=== PATIENT | male | born 1940 | race Caucasian/White ===

== ENCOUNTER 2020-11-12 16:26 | Inpatient (IN) ==
[2020-11-13] MEDS ORDERED: Insulin DETEMIR 100 UNIT/ML per UNIT SUBQ SCH (07:30)
[2020-11-13] MEDS: lisinopriL 20 MG TABLET PO SCH ×2 (08:51→20:26)
[2020-11-13] MEDS: Gabapentin 300 MG CAPSULE PO SCH ×3 (08:52→20:26)
[2020-11-13] MEDS: Aspirin Enteric Coated 81 MG Tablet PO SCH (08:52)
[2020-11-13] MEDS: Finasteride 5 MG TABLET PO SCH (08:52)
[2020-11-13] MEDS: Cefdinir 300 MG CAPSULE PO SCH ×2 (08:52→20:26)
[2020-11-13] MEDS: Carbidopa/Levodopa 25/100 TABLET PO SCH ×3 (08:52→20:26)
[2020-11-13] MEDS: amLODIPine 5 MG TABLET PO SCH (08:52)
[2020-11-13] MEDS: Insulin DETEMIR 100 UNIT/ML X5UNITS SUBQ SCH ×2 (08:55→20:26)
[2020-11-13] MEDS: Insulin LISPRO 300 UNITS/3 ML VIAL SUBQ SCH ×3 (08:55→17:46)
[2020-11-13] MEDS: *HR* Metformin 850 MG TABLET PO SCH ×3 (11:16→20:26)
[2020-11-13 11:52] LABS: BUN/Creatinine Ratio 21 (6-26); Blood Urea Nitrogen 16 mg/dL (8-23); Calcium 8.9 mg/dL (8.6-10.3); Carbon Dioxide 28 mEq/L (23-29); Chloride 103 mEq/L (98-107); Glucose 132 mg/dL (70-105); Osmolality,Calculated 299 (280-300); Potassium 2.8 mEq/L (3.5-5.1); Sodium 143 mEq/L (136-145); eGFR For African Americans > 60 (> 60); eGFR For Non-African Americans > 60 (> 60)
[2020-11-13] MEDS ORDERED: Insulin DETEMIR 100 UNIT/ML per UNIT SUBQ ONE (19:50)
[2020-11-14 07:25] LABS: Hematocrit 38.5 % (37.5-50.1); Hemoglobin 12.3 g/dL (12.9-16.9); Mean Corpuscular HGB Conc 31.9 g/dL (31.6-35.5); Mean Corpuscular Hemoglobin 28.9 pg (28.0-33.3); Mean Corpuscular Volume 90.4 fL (83.0-100.0); Mean Platelet Volume 10.8 fL (9.4-12.4); Platelet Count 213 K/mcL (140-400); Red Blood Count 4.26 M/mcL (4.19-5.50); Red Cell Distribution Width 14.7 % (11.5-14.5); White Blood Count 6.4 K/mcL (4.3-11.1)
[2020-11-14 07:49] LABS: Calcium 8.4 mg/dL (8.6-10.3); Potassium 3.2 mEq/L (3.5-5.1)
[2020-11-14 07:58] LABS: Eosinophils # 0.4 K/mcL (0.0-0.6); Lymphocytes # 0.6 K/mcL (0.6-4.6); Monocytes # 0.4 K/mcL (0.0-1.3)
[2020-11-14] MEDS: amLODIPine 5 MG TABLET PO SCH (10:32)
[2020-11-14] MEDS: Gabapentin 300 MG CAPSULE PO SCH ×3 (10:33→19:59)
[2020-11-14] MEDS: *HR* Metformin 850 MG TABLET PO SCH ×3 (10:35→19:59)
[2020-11-14] MEDS: Aspirin Enteric Coated 81 MG Tablet PO SCH (10:35)
[2020-11-14] MEDS: Cefdinir 300 MG CAPSULE PO SCH ×2 (10:35→19:58)
[2020-11-14] MEDS: lisinopriL 20 MG TABLET PO SCH ×2 (10:35→19:59)
[2020-11-14] MEDS: Finasteride 5 MG TABLET PO SCH (10:35)
[2020-11-14] MEDS: Carbidopa/Levodopa 25/100 TABLET PO SCH ×3 (10:35→19:58)
[2020-11-14] MEDS: Insulin LISPRO 300 UNITS/3 ML VIAL SUBQ SCH ×3 (10:38→17:51)
[2020-11-14] MEDS: Insulin DETEMIR 100 UNIT/ML X5UNITS SUBQ SCH ×2 (10:38→20:09)
[2020-11-14] MEDS ORDERED: Insulin DETEMIR 100 UNIT/ML per UNIT SUBQ ONE (19:29)
[2020-11-15] MEDS: *HR* Metformin 850 MG TABLET PO SCH ×3 (09:15→20:36)
[2020-11-15] MEDS: lisinopriL 20 MG TABLET PO SCH ×2 (09:15→20:36)
[2020-11-15] MEDS: Aspirin Enteric Coated 81 MG Tablet PO SCH (09:15)
[2020-11-15] MEDS: Cefdinir 300 MG CAPSULE PO SCH ×2 (09:15→20:36)
[2020-11-15] MEDS: Gabapentin 300 MG CAPSULE PO SCH ×3 (09:16→20:36)
[2020-11-15] MEDS: amLODIPine 5 MG TABLET PO SCH (09:16)
[2020-11-15] MEDS: Carbidopa/Levodopa 25/100 TABLET PO SCH ×3 (09:16→20:36)
[2020-11-15] MEDS: Finasteride 5 MG TABLET PO SCH (09:16)
[2020-11-15] MEDS: Insulin LISPRO 300 UNITS/3 ML VIAL SUBQ SCH ×3 (09:20→17:32)
[2020-11-15] MEDS: Insulin DETEMIR 100 UNIT/ML X5UNITS SUBQ SCH ×2 (09:20→20:37)
[2020-11-16] MEDS: Aspirin Enteric Coated 81 MG Tablet PO SCH (08:42)
[2020-11-16] MEDS: Carbidopa/Levodopa 25/100 TABLET PO SCH ×3 (08:42→21:30)
[2020-11-16] MEDS: *HR* Metformin 850 MG TABLET PO SCH ×3 (08:42→21:31)
[2020-11-16] MEDS: Insulin LISPRO 300 UNITS/3 ML VIAL SUBQ SCH ×3 (08:42→16:49)
[2020-11-16] MEDS: Gabapentin 300 MG CAPSULE PO SCH ×3 (08:42→21:30)
[2020-11-16] MEDS: amLODIPine 5 MG TABLET PO SCH (08:43)
[2020-11-16] MEDS: Cefdinir 300 MG CAPSULE PO SCH (08:43)
[2020-11-16] MEDS: lisinopriL 20 MG TABLET PO SCH ×2 (08:43→21:30)
[2020-11-16] MEDS: Finasteride 5 MG TABLET PO SCH (08:43)
[2020-11-16] MEDS: Insulin DETEMIR 100 UNIT/ML X5UNITS SUBQ SCH ×2 (09:26→21:31)
[2020-11-17] MEDS: Insulin LISPRO 300 UNITS/3 ML VIAL SUBQ SCH ×3 (10:10→17:19)
[2020-11-17] MEDS: Insulin DETEMIR 100 UNIT/ML X5UNITS SUBQ SCH ×2 (10:14→20:14)
[2020-11-17] MEDS: *HR* Metformin 850 MG TABLET PO SCH ×3 (10:14→20:16)
[2020-11-17] MEDS: Gabapentin 300 MG CAPSULE PO SCH ×3 (10:14→20:15)
[2020-11-17] MEDS: lisinopriL 20 MG TABLET PO SCH ×2 (10:14→20:16)
[2020-11-17] MEDS: Carbidopa/Levodopa 25/100 TABLET PO SCH ×3 (10:14→20:16)
[2020-11-17] MEDS: Finasteride 5 MG TABLET PO SCH (10:15)
[2020-11-17] MEDS: Aspirin Enteric Coated 81 MG Tablet PO SCH (10:15)
[2020-11-17] MEDS: amLODIPine 5 MG TABLET PO SCH (10:15)
[2020-11-17] MEDS: *HR* HYDROcodone/Acet 10/325 mg TABLET PO PRN (17:11)
[2020-11-18] MEDS: *HR* HYDROcodone/Acet 10/325 mg TABLET PO PRN ×3 (01:16→19:48)
[2020-11-18 07:13] LABS: Hematocrit 34.9 % (37.5-50.1); Mean Corpuscular HGB Conc 31.5 g/dL (31.6-35.5); Mean Corpuscular Hemoglobin 28.6 pg (28.0-33.3); Mean Corpuscular Volume 90.9 fL (83.0-100.0); Mean Platelet Volume 10.5 fL (9.4-12.4); Platelet Count 209 K/mcL (140-400); Red Blood Count 3.84 M/mcL (4.19-5.50); Red Cell Distribution Width 14.9 % (11.5-14.5); White Blood Count 6.2 K/mcL (4.3-11.1)
[2020-11-18 07:21] LABS: BUN/Creatinine Ratio 24 (6-26); Blood Urea Nitrogen 23 mg/dL (8-23); Calcium 8.6 mg/dL (8.6-10.3); Carbon Dioxide 28 mEq/L (23-29); Chloride 105 mEq/L (98-107); Glucose 114 mg/dL (70-105); Osmolality,Calculated 297 (280-300); Potassium 4.5 mEq/L (3.5-5.1); Sodium 141 mEq/L (136-145); eGFR For African Americans > 60 (> 60); eGFR For Non-African Americans > 60 (> 60)
[2020-11-18] MEDS: Finasteride 5 MG TABLET PO SCH (08:02)
[2020-11-18] MEDS: Insulin LISPRO 300 UNITS/3 ML VIAL SUBQ SCH ×3 (08:02→16:20)
[2020-11-18] MEDS: amLODIPine 5 MG TABLET PO SCH (08:02)
[2020-11-18] MEDS: Carbidopa/Levodopa 25/100 TABLET PO SCH ×3 (08:02→19:47)
[2020-11-18] MEDS: Gabapentin 300 MG CAPSULE PO SCH ×3 (08:02→19:47)
[2020-11-18] MEDS: *HR* Metformin 850 MG TABLET PO SCH ×3 (08:02→19:47)
[2020-11-18] MEDS: lisinopriL 20 MG TABLET PO SCH ×2 (08:02→19:47)
[2020-11-18] MEDS: Aspirin Enteric Coated 81 MG Tablet PO SCH (08:02)
[2020-11-18] MEDS: Insulin DETEMIR 100 UNIT/ML X5UNITS SUBQ SCH ×2 (08:46→20:41)
[2020-11-19] MEDS: *HR* HYDROcodone/Acet 10/325 mg TABLET PO PRN ×2 (03:52→22:00)
[2020-11-19] MEDS: amLODIPine 5 MG TABLET PO SCH (08:14)
[2020-11-19] MEDS: lisinopriL 20 MG TABLET PO SCH ×2 (08:14→22:01)
[2020-11-19] MEDS: Aspirin Enteric Coated 81 MG Tablet PO SCH (08:14)
[2020-11-19] MEDS: Gabapentin 300 MG CAPSULE PO SCH ×3 (08:14→22:01)
[2020-11-19] MEDS: Carbidopa/Levodopa 25/100 TABLET PO SCH ×3 (08:14→22:01)
[2020-11-19] MEDS: Finasteride 5 MG TABLET PO SCH (08:14)
[2020-11-19] MEDS: *HR* Metformin 850 MG TABLET PO SCH ×3 (08:14→22:00)
[2020-11-19] MEDS: Insulin LISPRO 300 UNITS/3 ML VIAL SUBQ SCH ×3 (08:15→16:26)
[2020-11-19] MEDS: Insulin DETEMIR 100 UNIT/ML X5UNITS SUBQ SCH ×2 (09:00→22:01)
[2020-11-20] MEDS: Insulin LISPRO 300 UNITS/3 ML VIAL SUBQ SCH ×3 (08:00→16:54)
[2020-11-20] MEDS: Gabapentin 300 MG CAPSULE PO SCH ×3 (08:43→20:30)
[2020-11-20] MEDS: *HR* HYDROcodone/Acet 10/325 mg TABLET PO PRN ×2 (08:43→17:01)
[2020-11-20] MEDS: Aspirin Enteric Coated 81 MG Tablet PO SCH (08:43)
[2020-11-20] MEDS: *HR* Metformin 850 MG TABLET PO SCH ×3 (08:43→20:30)
[2020-11-20] MEDS: Carbidopa/Levodopa 25/100 TABLET PO SCH ×3 (08:43→20:30)
[2020-11-20] MEDS: Finasteride 5 MG TABLET PO SCH (08:44)
[2020-11-20] MEDS: Insulin DETEMIR 100 UNIT/ML X5UNITS SUBQ SCH ×2 (08:44→20:32)
[2020-11-20] MEDS: lisinopriL 20 MG TABLET PO SCH ×2 (08:44→20:31)
[2020-11-20] MEDS: amLODIPine 5 MG TABLET PO SCH (08:44)
[2020-11-20] MEDS ORDERED: Insulin DETEMIR 100 UNIT/ML per UNIT SUBQ ONE (20:27)
[2020-11-21] MEDS: Insulin LISPRO 300 UNITS/3 ML VIAL SUBQ SCH ×3 (08:13→16:45)
[2020-11-21] MEDS: lisinopriL 20 MG TABLET PO SCH ×2 (08:20→21:04)
[2020-11-21] MEDS: *HR* Metformin 850 MG TABLET PO SCH ×3 (08:20→16:45)
[2020-11-21] MEDS: Finasteride 5 MG TABLET PO SCH (08:20)
[2020-11-21] MEDS: Gabapentin 300 MG CAPSULE PO SCH ×3 (08:20→21:04)
[2020-11-21] MEDS: Aspirin Enteric Coated 81 MG Tablet PO SCH (08:20)
[2020-11-21] MEDS: amLODIPine 5 MG TABLET PO SCH (08:20)
[2020-11-21] MEDS: Carbidopa/Levodopa 25/100 TABLET PO SCH ×3 (08:21→21:04)
[2020-11-21] MEDS: Insulin DETEMIR 100 UNIT/ML X5UNITS SUBQ SCH ×2 (08:21→21:04)
[2020-11-21] MEDS: *HR* HYDROcodone/Acet 10/325 mg TABLET PO PRN (08:38)
[2020-11-21] MEDS ORDERED: Insulin DETEMIR 100 UNIT/ML per UNIT SUBQ ONE (21:02)
[2020-11-22] MEDS: Aspirin Enteric Coated 81 MG Tablet PO SCH (08:12)
[2020-11-22] MEDS: *HR* Metformin 850 MG TABLET PO SCH ×3 (08:13→16:46)
[2020-11-22] MEDS: Insulin LISPRO 300 UNITS/3 ML VIAL SUBQ SCH ×3 (08:13→16:47)
[2020-11-22] MEDS: lisinopriL 20 MG TABLET PO SCH ×2 (08:13→20:38)
[2020-11-22] MEDS: Carbidopa/Levodopa 25/100 TABLET PO SCH ×3 (08:13→20:38)
[2020-11-22] MEDS: Gabapentin 300 MG CAPSULE PO SCH ×3 (08:13→20:38)
[2020-11-22] MEDS: Finasteride 5 MG TABLET PO SCH (08:13)
[2020-11-22] MEDS: amLODIPine 5 MG TABLET PO SCH (08:13)
[2020-11-22] MEDS: *HR* HYDROcodone/Acet 10/325 mg TABLET PO PRN ×2 (08:46→16:46)
[2020-11-22] MEDS: Insulin DETEMIR 100 UNIT/ML X5UNITS SUBQ SCH ×2 (08:47→20:38)
[2020-11-23] MEDS: Insulin LISPRO 300 UNITS/3 ML VIAL SUBQ SCH ×3 (09:19→17:05)
[2020-11-23] MEDS: Gabapentin 300 MG CAPSULE PO SCH ×3 (09:20→20:05)
[2020-11-23] MEDS: lisinopriL 20 MG TABLET PO SCH ×2 (09:20→20:05)
[2020-11-23] MEDS: Carbidopa/Levodopa 25/100 TABLET PO SCH ×3 (09:20→20:05)
[2020-11-23] MEDS: Aspirin Enteric Coated 81 MG Tablet PO SCH (09:20)
[2020-11-23] MEDS: Finasteride 5 MG TABLET PO SCH (09:20)
[2020-11-23] MEDS: amLODIPine 5 MG TABLET PO SCH (09:21)
[2020-11-23] MEDS: Insulin DETEMIR 100 UNIT/ML X5UNITS SUBQ SCH ×2 (09:21→17:14)
[2020-11-23] MEDS: *HR* Metformin 850 MG TABLET PO SCH ×3 (09:21→17:14)
[2020-11-23] MEDS: *HR* HYDROcodone/Acet 10/325 mg TABLET PO PRN (09:22)
[2020-11-24] MEDS: Insulin LISPRO 300 UNITS/3 ML VIAL SUBQ SCH ×3 (08:13→16:47)
[2020-11-24] MEDS: Insulin DETEMIR 100 UNIT/ML X5UNITS SUBQ SCH ×2 (08:54→20:52)
[2020-11-24] MEDS: Aspirin Enteric Coated 81 MG Tablet PO SCH (08:55)
[2020-11-24] MEDS: Carbidopa/Levodopa 25/100 TABLET PO SCH ×3 (08:55→20:51)
[2020-11-24] MEDS: *HR* HYDROcodone/Acet 10/325 mg TABLET PO PRN ×2 (08:55→16:51)
[2020-11-24] MEDS: Gabapentin 300 MG CAPSULE PO SCH ×3 (08:55→20:51)
[2020-11-24] MEDS: *HR* Metformin 850 MG TABLET PO SCH ×3 (08:55→16:48)
[2020-11-24] MEDS: Finasteride 5 MG TABLET PO SCH (08:55)
[2020-11-24] MEDS: amLODIPine 5 MG TABLET PO SCH (08:55)
[2020-11-24] MEDS: lisinopriL 20 MG TABLET PO SCH ×2 (08:55→20:52)
[2020-11-25 07:13] LABS: Basophils % 0.8 %; Eosinophils # 0.1 K/mcL (0.0-0.6); Eosinophils % 1.9 %; Hematocrit 31.1 % (37.5-50.1); Immature Granulocytes % 0.4 % (0-4); Lymphocytes # 1.3 K/mcL (0.6-4.6); Lymphocytes % 27.2 %; Mean Corpuscular HGB Conc 32.2 g/dL (31.6-35.5); Mean Corpuscular Hemoglobin 29.8 pg (28.0-33.3); Mean Corpuscular Volume 92.6 fL (83.0-100.0); Mean Platelet Volume 10.9 fL (9.4-12.4); Monocytes # 0.5 K/mcL (0.0-1.3); Neutrophils # 2.9 K/mcL (1.6-8.9); Platelet Count 199 K/mcL (140-400); Red Blood Count 3.36 M/mcL (4.19-5.50); Red Cell Distribution Width 15.6 % (11.5-14.5); Segmented Neutrophils % 59.7 %; White Blood Count 4.8 K/mcL (4.3-11.1)
[2020-11-25 07:22] LABS: BUN/Creatinine Ratio 20 (6-26); Blood Urea Nitrogen 25 mg/dL (8-23); Calcium 8.4 mg/dL (8.6-10.3); Carbon Dioxide 27 mEq/L (23-29); Chloride 105 mEq/L (98-107); Glucose 178 mg/dL (70-105); Osmolality,Calculated 301 (280-300); Potassium 4.5 mEq/L (3.5-5.1); Sodium 141 mEq/L (136-145); eGFR For African Americans > 60 (> 60); eGFR For Non-African Americans 56 (> 60)
[2020-11-25] MEDS: Insulin LISPRO 300 UNITS/3 ML VIAL SUBQ SCH ×3 (08:05→16:24)
[2020-11-25] MEDS: Aspirin Enteric Coated 81 MG Tablet PO SCH (08:05)
[2020-11-25] MEDS: *HR* Metformin 850 MG TABLET PO SCH ×3 (08:05→16:45)
[2020-11-25] MEDS: Gabapentin 300 MG CAPSULE PO SCH ×3 (08:06→20:33)
[2020-11-25] MEDS: amLODIPine 5 MG TABLET PO SCH (08:06)
[2020-11-25] MEDS: Finasteride 5 MG TABLET PO SCH (08:06)
[2020-11-25] MEDS: lisinopriL 20 MG TABLET PO SCH ×2 (08:06→20:34)
[2020-11-25] MEDS: Carbidopa/Levodopa 25/100 TABLET PO SCH ×3 (08:06→20:34)
[2020-11-25] MEDS: *HR* HYDROcodone/Acet 10/325 mg TABLET PO PRN ×2 (08:07→16:45)
[2020-11-25] MEDS: Insulin DETEMIR 100 UNIT/ML X5UNITS SUBQ SCH ×2 (08:28→20:34)
[2020-11-26] MEDS: *HR* HYDROcodone/Acet 10/325 mg TABLET PO PRN ×2 (05:58→20:16)
[2020-11-26] MEDS: *HR* Metformin 850 MG TABLET PO SCH ×3 (09:04→17:38)
[2020-11-26] MEDS: lisinopriL 20 MG TABLET PO SCH ×2 (09:05→20:17)
[2020-11-26] MEDS: Gabapentin 300 MG CAPSULE PO SCH ×3 (09:05→20:16)
[2020-11-26] MEDS: Finasteride 5 MG TABLET PO SCH (09:05)
[2020-11-26] MEDS: amLODIPine 5 MG TABLET PO SCH (09:05)
[2020-11-26] MEDS: Aspirin Enteric Coated 81 MG Tablet PO SCH (09:05)
[2020-11-26] MEDS: Carbidopa/Levodopa 25/100 TABLET PO SCH ×3 (09:05→20:17)
[2020-11-26] MEDS: Insulin DETEMIR 100 UNIT/ML X5UNITS SUBQ SCH ×2 (09:06→20:17)
[2020-11-26] MEDS: Insulin LISPRO 300 UNITS/3 ML VIAL SUBQ SCH ×3 (09:06→17:34)
[2020-11-26] MEDS ORDERED: Insulin DETEMIR 100 UNIT/ML per UNIT SUBQ ONE (19:27)
[2020-11-27] MEDS: Carbidopa/Levodopa 25/100 TABLET PO SCH ×3 (09:01→20:07)
[2020-11-27] MEDS: Finasteride 5 MG TABLET PO SCH (09:03)
[2020-11-27] MEDS: amLODIPine 5 MG TABLET PO SCH (09:03)
[2020-11-27] MEDS: *HR* Metformin 850 MG TABLET PO SCH ×3 (09:03→17:13)
[2020-11-27] MEDS: lisinopriL 20 MG TABLET PO SCH ×2 (09:04→20:08)
[2020-11-27] MEDS: Gabapentin 300 MG CAPSULE PO SCH ×3 (09:04→20:08)
[2020-11-27] MEDS: Aspirin Enteric Coated 81 MG Tablet PO SCH (09:04)
[2020-11-27] MEDS: Insulin DETEMIR 100 UNIT/ML X5UNITS SUBQ SCH ×2 (09:05→20:07)
[2020-11-27] MEDS: Insulin LISPRO 300 UNITS/3 ML VIAL SUBQ SCH ×3 (09:06→16:39)
[2020-11-27] MEDS: *HR* HYDROcodone/Acet 10/325 mg TABLET PO PRN ×2 (11:49→20:07)
[2020-11-27 12:40] LABS: Bilirubin,Urine Negative (Negative); Blood,Urine Negative (Negative); Clarity,Urine Clear (Clear); Color,Urine Yellow (Yellow); Glucose,Urine (UA) Normal (Normal); Ketones,Urine Trace mg/dL (Negative); Leukocyte Esterase,Urine Negative (Negative); Nitrite,Urine Negative (Negative); Protein,Urine Negative (Neg-Trace); Urobilinogen,Urine Normal (Normal)
[2020-11-27] MEDS ORDERED: haloperidoL 1 MG TABLET PO PRN (16:23)
[2020-11-27] MEDS ORDERED: Insulin DETEMIR 100 UNIT/ML per UNIT SUBQ ONE (19:18)
[2020-11-28] MEDS: Insulin LISPRO 300 UNITS/3 ML VIAL SUBQ SCH ×3 (07:56→17:33)
[2020-11-28] MEDS: amLODIPine 5 MG TABLET PO SCH (08:45)
[2020-11-28] MEDS: *HR* Metformin 850 MG TABLET PO SCH ×3 (08:45→17:33)
[2020-11-28] MEDS: lisinopriL 20 MG TABLET PO SCH ×2 (08:45→21:38)
[2020-11-28] MEDS: Insulin DETEMIR 100 UNIT/ML X5UNITS SUBQ SCH ×2 (08:45→21:41)
[2020-11-28] MEDS: Finasteride 5 MG TABLET PO SCH (08:45)
[2020-11-28] MEDS: *HR* HYDROcodone/Acet 10/325 mg TABLET PO PRN ×2 (08:45→17:35)
[2020-11-28] MEDS: Aspirin Enteric Coated 81 MG Tablet PO SCH (08:45)
[2020-11-28] MEDS: Carbidopa/Levodopa 25/100 TABLET PO SCH ×3 (08:45→21:40)
[2020-11-28] MEDS: Gabapentin 300 MG CAPSULE PO SCH ×3 (08:45→21:39)
[2020-11-28] MEDS ORDERED: Insulin DETEMIR 100 UNIT/ML per UNIT SUBQ ONE (21:09)
[2020-11-29] MEDS: Insulin LISPRO 300 UNITS/3 ML VIAL SUBQ SCH ×3 (07:38→17:34)
[2020-11-29] MEDS: Carbidopa/Levodopa 25/100 TABLET PO SCH ×3 (08:51→20:19)
[2020-11-29] MEDS: *HR* HYDROcodone/Acet 10/325 mg TABLET PO PRN ×2 (08:51→17:33)
[2020-11-29] MEDS: Insulin DETEMIR 100 UNIT/ML X5UNITS SUBQ SCH ×2 (08:51→20:21)
[2020-11-29] MEDS: *HR* Metformin 850 MG TABLET PO SCH ×3 (08:51→17:33)
[2020-11-29] MEDS: lisinopriL 20 MG TABLET PO SCH ×2 (08:51→20:19)
[2020-11-29] MEDS: Gabapentin 300 MG CAPSULE PO SCH ×3 (08:51→20:18)
[2020-11-29] MEDS: Aspirin Enteric Coated 81 MG Tablet PO SCH (08:51)
[2020-11-29] MEDS: Finasteride 5 MG TABLET PO SCH (08:51)
[2020-11-29] MEDS: amLODIPine 5 MG TABLET PO SCH (08:52)
[2020-11-30 07:17] LABS: Basophils % 0.7 %; Eosinophils # 0.1 K/mcL (0.0-0.6); Hematocrit 31.4 % (37.5-50.1); Hemoglobin 10.1 g/dL (12.9-16.9); Immature Granulocytes % 0.5 % (0-4); Lymphocytes # 1.3 K/mcL (0.6-4.6); Lymphocytes % 28.8 %; Mean Corpuscular HGB Conc 32.2 g/dL (31.6-35.5); Mean Corpuscular Hemoglobin 29.6 pg (28.0-33.3); Mean Corpuscular Volume 92.1 fL (83.0-100.0); Mean Platelet Volume 10.7 fL (9.4-12.4); Monocytes # 0.5 K/mcL (0.0-1.3); Monocytes % 10.9 %; Neutrophils # 2.5 K/mcL (1.6-8.9); Platelet Count 156 K/mcL (140-400); Red Blood Count 3.41 M/mcL (4.19-5.50); Segmented Neutrophils % 57.1 %; White Blood Count 4.4 K/mcL (4.3-11.1)
[2020-11-30 07:34] LABS: BUN/Creatinine Ratio 24 (6-26); Blood Urea Nitrogen 24 mg/dL (8-23); Calcium 8.5 mg/dL (8.6-10.3); Carbon Dioxide 27 mEq/L (23-29); Chloride 104 mEq/L (98-107); Glucose 109 mg/dL (70-105); Osmolality,Calculated 293 (280-300); Potassium 4.4 mEq/L (3.5-5.1); Sodium 139 mEq/L (136-145); eGFR For African Americans > 60 (> 60); eGFR For Non-African Americans > 60 (> 60)
[2020-11-30] MEDS: Insulin LISPRO 300 UNITS/3 ML VIAL SUBQ SCH ×3 (07:46→17:06)
[2020-11-30] MEDS: Gabapentin 300 MG CAPSULE PO SCH ×3 (08:56→22:06)
[2020-11-30] MEDS: amLODIPine 5 MG TABLET PO SCH (08:56)
[2020-11-30] MEDS: lisinopriL 20 MG TABLET PO SCH ×2 (08:57→22:06)
[2020-11-30] MEDS: Aspirin Enteric Coated 81 MG Tablet PO SCH (08:57)
[2020-11-30] MEDS: Carbidopa/Levodopa 25/100 TABLET PO SCH ×3 (08:57→22:07)
[2020-11-30] MEDS: Finasteride 5 MG TABLET PO SCH (08:57)
[2020-11-30] MEDS: *HR* Metformin 850 MG TABLET PO SCH ×3 (08:57→17:06)
[2020-11-30] MEDS: Insulin DETEMIR 100 UNIT/ML X5UNITS SUBQ SCH ×2 (08:58→22:08)
[2020-11-30] MEDS: *HR* HYDROcodone/Acet 10/325 mg TABLET PO PRN ×2 (09:03→22:07)
[2020-12-01] MEDS: Insulin LISPRO 300 UNITS/3 ML VIAL SUBQ SCH ×3 (07:47→16:32)
[2020-12-01] MEDS: lisinopriL 20 MG TABLET PO SCH ×2 (09:28→20:55)
[2020-12-01] MEDS: *HR* HYDROcodone/Acet 10/325 mg TABLET PO PRN ×2 (09:28→21:00)
[2020-12-01] MEDS: *HR* Metformin 850 MG TABLET PO SCH ×3 (09:28→16:35)
[2020-12-01] MEDS: Gabapentin 300 MG CAPSULE PO SCH ×3 (09:28→20:55)
[2020-12-01] MEDS: Carbidopa/Levodopa 25/100 TABLET PO SCH ×3 (09:29→20:55)
[2020-12-01] MEDS: amLODIPine 5 MG TABLET PO SCH (09:29)
[2020-12-01] MEDS: Finasteride 5 MG TABLET PO SCH (09:29)
[2020-12-01] MEDS: Aspirin Enteric Coated 81 MG Tablet PO SCH (09:29)
[2020-12-01] MEDS: Insulin DETEMIR 100 UNIT/ML X5UNITS SUBQ SCH ×2 (09:37→20:56)
[2020-12-01] MEDS ORDERED: Insulin DETEMIR 100 UNIT/ML per UNIT SUBQ ONE (20:06)
[2020-12-02] MEDS: Carbidopa/Levodopa 25/100 TABLET PO SCH ×3 (08:54→20:57)
[2020-12-02] MEDS: Gabapentin 300 MG CAPSULE PO SCH ×3 (08:54→20:57)
[2020-12-02] MEDS: *HR* HYDROcodone/Acet 10/325 mg TABLET PO PRN ×2 (08:55→20:58)
[2020-12-02] MEDS: Aspirin Enteric Coated 81 MG Tablet PO SCH (08:55)
[2020-12-02] MEDS: *HR* Metformin 850 MG TABLET PO SCH ×3 (08:55→16:06)
[2020-12-02] MEDS: Insulin LISPRO 300 UNITS/3 ML VIAL SUBQ SCH ×3 (08:55→16:47)
[2020-12-02] MEDS: lisinopriL 20 MG TABLET PO SCH ×2 (08:55→20:58)
[2020-12-02] MEDS: amLODIPine 5 MG TABLET PO SCH (08:55)
[2020-12-02] MEDS: Finasteride 5 MG TABLET PO SCH (08:55)
[2020-12-02] MEDS: Insulin DETEMIR 100 UNIT/ML X5UNITS SUBQ SCH ×2 (11:47→20:59)
[2020-12-03] MEDS: Insulin LISPRO 300 UNITS/3 ML VIAL SUBQ SCH ×3 (07:35→16:27)
[2020-12-03] MEDS: amLODIPine 5 MG TABLET PO SCH (08:30)
[2020-12-03] MEDS: lisinopriL 20 MG TABLET PO SCH ×2 (08:30→20:34)
[2020-12-03] MEDS: Finasteride 5 MG TABLET PO SCH (08:30)
[2020-12-03] MEDS: *HR* Metformin 850 MG TABLET PO SCH ×3 (08:30→15:21)
[2020-12-03] MEDS: Gabapentin 300 MG CAPSULE PO SCH ×3 (08:30→20:33)
[2020-12-03] MEDS: Carbidopa/Levodopa 25/100 TABLET PO SCH ×3 (08:30→20:33)
[2020-12-03] MEDS: *HR* HYDROcodone/Acet 10/325 mg TABLET PO PRN ×2 (08:30→20:34)
[2020-12-03] MEDS: Aspirin Enteric Coated 81 MG Tablet PO SCH (08:30)
[2020-12-03] MEDS: Insulin DETEMIR 100 UNIT/ML X5UNITS SUBQ SCH ×2 (08:31→20:35)
[2020-12-04 06:58] VITALS: BP 133/68
[2020-12-04] MEDS: Carbidopa/Levodopa 25/100 TABLET PO SCH ×2 (08:18→12:10)
[2020-12-04] MEDS: Aspirin Enteric Coated 81 MG Tablet PO SCH (08:18)
[2020-12-04] MEDS: Gabapentin 300 MG CAPSULE PO SCH ×2 (08:18→12:10)
[2020-12-04] MEDS: Insulin LISPRO 300 UNITS/3 ML VIAL SUBQ SCH ×2 (08:18→12:12)
[2020-12-04] MEDS: Finasteride 5 MG TABLET PO SCH (08:19)
[2020-12-04] MEDS: amLODIPine 5 MG TABLET PO SCH (08:19)
[2020-12-04] MEDS: *HR* Metformin 850 MG TABLET PO SCH ×2 (08:19→12:10)
[2020-12-04] MEDS: lisinopriL 20 MG TABLET PO SCH (08:19)
[2020-12-04] MEDS: Insulin DETEMIR 100 UNIT/ML X5UNITS SUBQ SCH (08:20)
== END 2020-12-04 13:50 | disposition home health service (06) | DRG 871 ==
LOC: INPPIK 11-13 03:53
PROVIDERS: ADMIT Family Medicine; ATTEND Family Medicine